=== PATIENT | female | born 1945 | race Caucasian/White ===

== ENCOUNTER 2017-05-01 21:00 | Emergency (ER) | payer MEDICARE, BC ==
--- NOTE | 2017-05-01 21:18 | UC ---
Ear Complaint HPI - HPI Summary HPI Summary: Pt presents with concern of piece of hearing aid stuck in bilateral ears. - History of Current Complaint Stated Complaint: HEARING AID STUCK Time Seen by Provider: 05/01/17 21:14 Hx Obtained From: Patient ?: No Onset/Duration: Sudden Onset, Still Present Severity Initially: Mild Severity Currently: Mild Aggravating Factors: FB Associated Signs/Symptoms: Positive: Hearing Loss, Foreign Body Sensation - Allergies/Home Medications Allergies/Adverse Reactions: Allergies Allergy/AdvReac Type Severity Reaction Status Date / Time Quinine Allergy Severe Anaphylatic Verified 05/01/17 21:20 Shock Sulfa Drugs Allergy Severe Anaphylatic Verified 05/01/17 21:20 Shock PMH/Surg Hx/FS Hx/Imm Hx Previously Healthy: Yes - Surgical History Surgical History: Yes Surgery Procedure, Year, and Place: right hip replacement, right ankle surgery with hardware,Appendectomy. - Family History Known Family History: Positive: Cardiac Disease - Social History Occupation: Retired Lives: With Family Substance Use Type: None, Prescribed Have You Smoked in the Last Year: No Review of Systems Constitutional: Negative Skin: Negative Eyes: Negative ENT: Other - FB bilateral ears Respiratory: Negative Cardiovascular: Negative Gastrointestinal: Negative Genitourinary: Negative Motor: Negative Neurovascular: Negative Musculoskeletal: Negative Neurological: Negative Psychological: Negative Is Patient Immunocompromised?: No All Other Systems Reviewed And Are Negative: Yes Physical Exam Triage Information Reviewed: Yes Appearance: Well-Appearing Vital Signs Reviewed: Yes Eye Exam: Normal ENT Exam: Other ENT: Positive: Other - FB in RIght EAr canal, removed easily with alligator forceps. No FB in left EC. Dental Exam: Normal Neck exam: Normal Respiratory Exam: Other Respiratory: Positive: No respiratory distress Musculoskeletal Exam: Normal Neurological Exam: Normal Psychological Exam: Normal Skin Exam: Normal Ear Complaint Course/Dx - Differential Dx/Diagnosis Differential Diagnosis/HQI/PQRI: Cerumen Impaction, Foreign Body Provider Diagnoses: FB in Right EC, removed. Discharge - Discharge Plan Condition: Stable Disposition: HOME Patient Education Materials: Ear Foreign Body (ED) Referrals: Smitha Tabor NP [Primary Care Provider] - If Needed Additional Instructions: Please follow up with your PCP as needed or return to clinic.
[2017-05-01 21:20] VITALS: BP 119/74
== END 2017-05-01 21:23 | disposition home or self-care (01) ==
LOC: UCCORT 21:00
DX: T16.1XXA Foreign body in right ear, initial encounter (principal)
CPT/HCPCS: 99201; G0463